=== PATIENT | female | born 1980 | race Caucasian/White ===

== ENCOUNTER 2017-02-04 06:58 | Inpatient (IN) | payer BC ==
--- NOTE | 2017-02-04 07:15 | EDPHY ---
H & P Time Seen by Provider: 02/04/17 06:58 HPI/ROS: CHIEF COMPLAINT: Seizure HISTORY OF PRESENT ILLNESS: Per EMS patient at 30 second seizure. Spouse called and pre-hospital glucose 141. She apparently has a history of alcohol use. Per the spouse there is no previous history of seizure disorder. On arrival she has a little bit confused and thinks she is in the city of [place], [facility]ated [facility]. She complains only of being sweaty but no other complaints. REVIEW OF SYSTEMS: Eye: no change in vision or double vision ENT: no sore throat Cardiac: no chest pain or syncope Pulmonary: no cough or SOB Abdomen: no vomiting, diarrhea, abdominal pain Musculoskeletal: no back pain Skin: The patient says she feels sweaty Neuro: no headache Constitutional: no fever : no urinary symptoms A comprehensive 10 point review of systems is otherwise negative aside from elements mentioned in the history of present illness. PAST MEDICAL HISTORY: Hypertension on Faizan inhibitor Social history: Discussed with spouse on phone at 710am per her request, daily alcohol. General Appearance: Alert and conversant, cooperative. Eyes: No scleral icterus. ENT, Mouth: Normal mucous membranes. Left-sided tongue abrasion. Respiratory: Normal respiratory effort, breath sounds equal, lungs are clear to auscultation. Cardiovascular: Regular rate and rhythm. Gastrointestinal: Abdomen is soft and non tender. Neurological: The patient is alert and thinks she is in [place]. Speech is a little bit halting. Mildly tremulous. Face symmetric, normal movement and sensation in all extremities. Skin: Bruising under the chin. Musculoskeletal: No peripheral edema and no joint swelling. Psychiatric: Not agitated. Emergency Department course/MDM: 739: Notified patient has sodium of 109. Consultation with Nephrology and hospitalist. Discussed with sister and at this time. Apparently she is visiting her sister, from [place]. 753: Discussed with Vito for Nephrology; recommends 50ml of 3% normal saline over 1 hour, check Na 1 hour after infusion. Replacement orally of potassium, 2 g magnesium IV OK as total volume is only 50 mLs. 815: Negative head CT per Dr. Dunn. 835: 3% normal saline infusing, seen by hospitalist in the emergency department. 859: Labs says they are still having trouble with the CBC on the analyzer, results pending. Smoking Status: Current every day smoker Constitutional: Initial Vital Signs Temperature (C) 36.7 C 02/04/17 07:00 Heart Rate 98 02/04/17 07:00 Respiratory Rate 18 02/04/17 07:00 Blood Pressure 136/88 H 02/04/17 07:00 O2 Sat (%) 94 02/04/17 07:00 O2 Delivery Mode Room Air Allergies/Adverse Reactions: amoxicillin Allergy (Verified 02/04/17 07:04) Sulfa (Sulfonamide Antibiotics) Allergy (Verified 02/04/17 07:04) Home Medications: Medication Instructions Recorded Lisinopril 02/04/17 Medical Decision Making - Diagnostics EKG Interpretation: 12-lead EKG interpreted by me; official reading is in trace master. My interpretation is sinus rhythm rate 88 with QT 432. Imaging Results: Imaging Impressions Head CT 02/04/17 07:15 Impression: No acute intracranial findings. If symptoms persist and clinical suspicion warrants, consider MRI. Findings discussed with CLARITA LAFLEUR 02/04/2017 at 8:08. Differential Diagnosis: Differential diagnosis considered for a seizure including but not limited to electrolyte abnormality, alcohol withdrawal, medication noncompliance, head injury, and breakthrough seizure. Consult/Admit Bed Type: [place] [address] Critical Care Time: Critical care time spent by me, Dr. Lafleur, exclusively with the care of this patient was 30 minutes, exclusive of PA or ASSISTANT HALL DIRECTOR time and exclusive of separate procedures. The organ system at risk was metabolic and I ordered oral potassium , IV magnesium, IV hypertonic saline, discussion with hospitalist and Nephrology pci security consultant, history and review of multiple diagnostic studies; to stabilize the patient and prevent worsening of the patient's condition. - Data Points Laboratory Results: Laboratory Results 02/04/17 07:00 02/04/17 02/04/17 02/04/17 07:11 07:00 07:00 WBC RBC Hgb Hct MCV MCH MCHC RDW Plt Count MPV Neut % (Auto) Lymph % (Auto) [place] % (Auto) Eos % (Auto) Baso % (Auto) Nucleat RBC Rel Count Absolute Neuts (auto) Absolute Lymphs (auto) Absolute Monos (auto) Absolute Eos (auto) Absolute Basos (auto) Absolute Nucleated RBC Immature Gran % Immature Gran # PT 11.9 SEC L SEC (12.0-15.0) INR 0.89 (0.83-1.16) Sodium 109 mEq/L L* mEq/L (134-144) Potassium 2.8 mEq/L L mEq/L (3.5-5.2) Chloride 58 mEq/L L mEq/L (97-110) Carbon Dioxide 30 mEq/l mEq/l (22-31) Anion Gap 21 mEq/L H mEq/L (8-16) BUN 5 mg/dL L mg/dL (7-23) Creatinine 0.7 mg/dL mg/dL (0.6-1.0) Estimated GFR > 60 Glucose 110 mg/dL H mg/dL (70-100) Calcium 9.5 mg/dL mg/dL (8.5-10.4) Beta HCG, Qual NEGATIVE 02/04/17 07:00 WBC Pending RBC Pending Hgb Pending Hct Pending MCV Pending MCH Pending MCHC Pending RDW Pending Plt Count Pending MPV Pending Neut % (Auto) Pending Lymph % (Auto) Pending [place] % (Auto) Pending Eos % (Auto) Pending Baso % (Auto) Pending Nucleat RBC Rel Count Pending Absolute Neuts (auto) Pending Absolute Lymphs (auto) Pending Absolute Monos (auto) Pending Absolute Eos (auto) Pending Absolute Basos (auto) Pending Absolute Nucleated RBC Pending Immature Gran % Pending Immature Gran # Pending PT INR Sodium Potassium Chloride Carbon Dioxide Anion Gap BUN Creatinine Estimated GFR Glucose Calcium Beta HCG, Qual Medications Given: Discontinued Medications Magnesium Sulfate (Magnesium Sulf 2 Gm (Premix)) 50 mls @ 50 mls/hr IV EDNOW ONE Stop: 02/04/17 08:45 Last Admin: 02/04/17 08:04 Dose: 50 mls Sodium Chloride (Sodium Chloride 3%) 50 mls @ 0 mls/hr IV EDNOW ONE; As Directed PRN Reason: Protocol Stop: 02/04/17 07:58 Last Admin: 02/04/17 08:26 Dose: 50 mls Metoclopramide HCl (Reglan Injection) 10 mg IVP EDNOW ONE Stop: 02/04/17 07:37 Last Admin: 02/04/17 08:01 Dose: 10 mg Potassium Chloride (Klor-Con) 40 meq PO EDNOW ONE Stop: 02/04/17 07:49 Last Admin: 02/04/17 08:09 Dose: 40 meq Departure - Departure Disposition: [facility] Acute Clinical Impression: Seizure, Hyponatremia Condition: Serious
--- NOTE | 2017-02-04 07:30 | CPEKG ---
Heart Rate: 88 RR Interval: 682 P-R Interval: 140 QRSD Interval: 92 QT Interval: 432 QTC Interval: 523 P [place]: 52 QRS [place]: 57 T Wave [place]: 47 EKG Severity - ABNORMAL ECG - EKG Impression: SINUS RHYTHM EKG Impression: PROLONGED QT INTERVAL Electronically Signed By: Missael Hall 04-Feb-2017 07:49:20
[2017-02-04 07:34] LABS: ANION GAP 21 mEq/L (8-16); CALCIUM 9.5 mg/dL (8.5-10.4); CARBON DIOXIDE 30 mEq/l (22-31); CHLORIDE 58 mEq/L (97-110); CREATININE 0.7 mg/dL (0.6-1.0); GLOMERULAR FILTRATION RATE > 60; GLUCOSE 110 mg/dL (70-100); POTASSIUM 2.8 mEq/L (3.5-5.2)
[2017-02-04] MEDS ORDERED: METOCLOPRAMIDE 10 MG/2 ML VIAL IVP ONE (07:36)
[2017-02-04 07:37] LABS: SODIUM 109 mEq/L (134-144)
[2017-02-04] MEDS ORDERED: MAGNESIUM SULF 2 GM/WATER 50 ML IV ONE (07:46)
[2017-02-04] MEDS ORDERED: POTASSIUM CL 20 MEQ TAB PO ONE ×3 (07:48→19:45)
[2017-02-04] MEDS ORDERED: SODIUM Cl 3% 50 ML IV ONE (07:57)
[2017-02-04] MEDS ORDERED: ONDANSETRON 4 MG/2 ML VIAL IVP PRN (08:37)
[2017-02-04] MEDS ORDERED: ONDANSETRON DISINTEGRATING 4 MG TAB PO PRN (08:37)
[2017-02-04 08:54] LABS: INR 0.89 (0.83-1.16); PROTIME(PATIENT) 11.9 SEC (12.0-15.0)
--- NOTE | 2017-02-04 09:34 | GHP ---
[f rep st] HISTORY AND PHYSICAL DATE OF ADMISSION: 02/04/2017 CHIEF COMPLAINT: Seizure. HISTORY OF PRESENT ILLNESS: This is a 37-year-old female who presented with a seizure. She is visit ing from [place], [place]. Her was in the other room, heard her, ran in there and saw valeria t her left arm was extended and right arm was contracted. There was some rhythmic shaking. She bit her lip, but not her tongue. Did not lose control of her bowel or her bladder. The event lasted abo ut 1 minute. Afterward, she was unable to speak for about 5 minutes and had then been confused. Whe n I am seeing her, she currently does know where she is and is speaking normally. She does not have a history of seizure disorders and has never had a seizure before. In the emergency room, she was found have sodium 109. In speaking with her further, she tells me valeria t she has been drinking alcohol quite heavily. Per her sister and her , she does not eat very much otherwise. She has been trying to increase her water intake a little bit, but does not really quantify how much. It is also difficult to get her to quantify how much she drinks, though she does drink at work daily, starts drinking around noon, has been hiding flasks of liquor from her a s well. She has had some alcohol withdrawal, never hospitalized for that, never had a seizure due to that. About 6 months ago, she fell down the stairs while intoxicated in [place]. She was admitted to the hospital there for major electrolyte imbalances. She received significant potassium and magnesium pe r her family. PAST MEDICAL/SURGICAL HISTORY: 1. Hypertension, on lisinopril. 2. Appendectomy as a child. MEDICATIONS: Please see medication reconciliation. ALLERGIES: Amoxicillin and sulfa. FAMILY HISTORY: Her mother has hypertension. Father has prostate cancer and chronic kidney disease. SOCIAL HISTORY: She drinks alcohol as above. She also smokes tobacco. REVIEW OF SYSTEMS: A 10-point review of systems is conducted and is negative except per HPI. PHYSICAL EXAM: VITAL SIGNS: Blood pressure 136/88, heart rate 98, respiration rate 18, saturating 9 4% on room air. Temperature is 36.7. GENERAL: The patient is a pleasant female who is currently re sting comfortably in bed, in no acute distress. HEENT: Normocephalic, atraumatic. She has a mild, what appears to be bite on her lower lip. CARDIOVASCULAR: Regular rate and rhythm. No murmurs, rub s or gallops. PULMONARY: Lungs clear to auscultation bilaterally. ABDOMEN: Soft, nontender, nondi stended. SKIN: No rash. : No Kramer. NEUROLOGIC: Alert and oriented x3. She is moving all ext remities. She has a nonfocal neurologic exam. PSYCHIATRIC: Normal mood and affect. LABS: CBC is pending. INR is pending. Sodium is 109, chloride 58, potassium is 2.8, glucose 110. DATA: 1. Head CT shows nothing acute. 2. ECG, which I personally viewed and interpreted, shows sinus rhythm. Her QTc is 523. IMPRESSION AND PLAN: A 37-year-old female with a seizure and critical hyponatremia. 1. Seizure: Suspect that this is due to her hyponatremia. Also consider alcohol withdrawal. Will monitor her in the ICU, treat hyponatremia and follow for alcohol withdrawal, which she currently cota s not appear to be experiencing. 2. Critical hyponatremia: Seems most consistent with beer potomania. We will also send urine elect rolytes, TSH, cortisol. Renal has been consulted, recommends 50 mL of 3% hypertonic saline and then recheck sodium 1 hour after infusion. We will follow q.2 sodiums for now. 3. Hypokalemia: She has received 40 mEq, we will recheck this soon. Also, we will check a magnesiu m. 4. Hypertension: We will hold her lisinopril for now. BILLING: I spent 45 minutes of bedside and floor critical care time managing critical hyponatremia c ausing a seizure. /[id number]/MODL
[2017-02-04 09:37] LABS: COLOR YELLOW; LEUKOCYTE ESTERASE,URINE NEGATIVE (NEGATIVE); NITRITE,URINE NEGATIVE (NEGATIVE)
[2017-02-04 10:00] LABS: % IMMATURE GRANULYOCYTES 0.6 % (0.0-1.1); ABSOLUTE IMMATURE GRANULOCYTES 0.04 10^3/uL (0.00-0.10); ABSOLUTE NRBC COUNT 0.02 10^3/uL (0-0.01); ADD DIFF? NO; ADD MORPH? YES; ADD SCAN? NO; ATYPICAL LYMPHOCYTE FLAG 0 (0-99); FRAGMENT RBC FLAG 0 (0-99); HEMATOCRIT 35.1 % (38.0-47.0); LEFT SHIFT FLG 0 (0-99); MEAN CELL VOLUME 85.2 fL (81.5-99.8); MEAN PLATELET VOLUME 11.1 fL (8.7-11.7); NRBC-AUTO% 0.3 % (0.0-0.2); PLATELET CLUMPS FLAG 10 (0-99); PLATELET COUNT 73 10^3/uL (150-400); RED BLOOD CELL COUNT 4.12 10^6/uL (4.18-5.33); RED CELL DISTRIBUTION WIDTH 12.7 % (11.5-15.2)
[2017-02-04 10:05] LABS: PHENCYCLIDINE URINE BCH < 6 ng/ml (NEGATIVE); PHENCYCLIDINE URINE BCH NEGATIVE (NEGATIVE)
[2017-02-04 10:05] LABS: LIPEMIA HEMOLYSIS FLAG 100 (0-99); MEAN CELL HEMOGLOBIN CONCENTR. 37.6 g/dL (32.4-36.7)
[2017-02-04 10:06] LABS: ALANINE AMINOTRANSFERASE 107 IU/L (9-52); ALBUMIN 4.6 g/dL (3.5-5.0); ALKALINE PHOSPHATASE 132 IU/L (38-126); ANION GAP 14 mEq/L (8-16); ASPARTATE AMINOTRANSFERASE 176 IU/L (14-46); BILIRUBIN,TOTAL 2.5 mg/dL (0.1-1.4); CALCIUM 8.9 mg/dL (8.5-10.4); CARBON DIOXIDE 31 mEq/l (22-31); CHLORIDE 62 mEq/L (97-110); CREATININE 0.7 mg/dL (0.6-1.0); ETHANOL SERUM < 10 mg/dL (0-10); GLOMERULAR FILTRATION RATE > 60; GLUCOSE 111 mg/dL (70-100); MAGNESIUM 2.6 mg/dL (1.6-2.3); POTASSIUM 2.6 mEq/L (3.5-5.2)
[2017-02-04 10:06] LABS: HEMOGLOBIN 13.2 g/dL (12.6-16.3)
[2017-02-04 10:15] LABS: TETRAHYDROCANNABINOL URINE 214 ng/mL (NEGATIVE)
[2017-02-04 10:19] LABS: SODIUM 107 mEq/L (134-144)
[2017-02-04 10:27] LABS: BILIRUBIN-CONJUGATED 0.7 mg/dL (0.0-0.5); BILIRUBIN-UNCONJUGATED 1.8 mg/dL (0.0-1.1)
[2017-02-04 10:27] LABS: TETRAHYDROCANNABINOL URINE 214 ng/mL (NEGATIVE)
[2017-02-04 10:31] LABS: HYPOCHROMIA 1+; MICROCYTES 1+; PLATELET ESTIMATE DECREASED (ADEQ)
[2017-02-04] MEDS ORDERED: ALTEPLASE 2 MG VIAL IVP PRN (10:46)
[2017-02-04] MEDS ORDERED: ALBUTEROL 60 PUFFS/8 GM MDI IH PRN (10:57)
[2017-02-04] MEDS ORDERED: PROTOCOL K PHOSPHATE 1 DOSE IV PRN (11:27)
[2017-02-04] MEDS ORDERED: PROTOCOL POTASSIUM 1 DOSE MISC PRN (11:27)
[2017-02-04] MEDS ORDERED: PROTOCOL MAGNESIUM 1 DOSE IV PRN (11:27)
[2017-02-04] MEDS ORDERED: SODIUM Cl 3% 100 ML IV ONE (11:37)
[2017-02-04 12:11] LABS: CORTISOL-AM 26.9 ug/dL (4.5-22.7)
[2017-02-04 13:04] LABS: POTASSIUM 2.6 mEq/L (3.5-5.2)
[2017-02-04 13:51] LABS: SODIUM 109 mEq/L (134-144)
[2017-02-04] MEDS: POTASSIUM Cl (KCl) 50 ML IV SCH ×2 (14:28→14:42)
--- NOTE | 2017-02-04 15:48 | PDCONSULT ---
Embroidery Finisher Note: Assessment/Plan: Hyponatremia: likely has been coming on for several days given her timeline of symptoms. Na 109 on presentation, goal is 115 by tomorrow am. Her urine osm and urine sodium is low, concerning for too much alcohol and not enough solute intake, does not look like SIADH. - Will continue 1000ml fluid restriction. - Sodium being checked q2h. - Will give another 100ml 3% sodium chloride. - Will continue to monitor closely. - Strict I/Os. - AM cortisol and TSH ok. Hypokalemia: Will continue to replace as needed, being checked q2h as well. Thank you for the interesting consult. Nephrology will continue to follow, please call if you have any additional questions or concerns. H & P Stated Complaint: Sz Time Seen by Provider: 02/04/17 06:58 HPI/ROS: HPI: Ms. Britton is a 37 yo F with h/o alcoholism who presented this am with seizures. Pt lives in [place], [place], is visiting her sister here. She reports that about 5 weeks ago she had a head trauma that was alcohol related, went to ER and was told her K and Mag were low and both were replaced, had PCP visit after that and supposedly fine. She has never been told she had a problem with sodium. She and her family note that she has a problem with alcohol, had at least 8 alcoholic beverages witnessed yesterday but no one is clear. This morning, she had a seizure for about 45 seconds witnessed by , was brought to ER. She has never had a seizure before. Her sodium on arrival was 109. She denies using any diuretics or NSAIDs, only takes an occasional MV OTC. Family notes she does not eat very much. Pt notes having some N/V in the past 2-3 days, and also notes some mild confusion in that timeframe. She got 50ml of 3% sodium chloride in ER but then started drinking water and apple juice, sodium came down on recheck to 107, now up to 110 with another 100ml of 3% sodium chloride. ROS: Positive per HPI, rest of 10-point ROS negative - Personal History LMP (Females 10-55): Unknown Current Tetanus/Diphtheria Vaccine: Unsure Current Tetanus Diphtheria and Acellular Pertussis (TDAP): Unsure - Medical/Surgical History Hx Asthma: No Hx Chronic Respiratory Disease: No Hx Diabetes: No Hx Cardiac Disease: No Hx Renal Disease: No Hx Cirrhosis: No Hx Alcoholism: Yes Hx HIV/AIDS: No Hx Splenectomy or Spleen Trauma: No Other PMH: PMH: asthma - Family History Significant Family History: Renal disease - Social History Smoking Status: Current every day smoker - Physical Exam Exam: General: alert and oriented, no acute distress Eyes; EOMI, PERRL OP: Clear, MMM Neck: supple, no thyromegaly CV: RRR, +2/4 radial and dorsalis pedis pulses, no peripheral edema Resp: CTA bilat, nonlabored respirations Abd: SOft, NT/ND Neuro: CN II-XII grossly intact, no asterixis Psych: cooperative, appropriate mood and affect Skin: C/D/I, no rash Constitutional: Initial Vital Signs Temperature (C) 36.7 C 02/04/17 07:00 Heart Rate 98 02/04/17 07:00 Respiratory Rate 18 02/04/17 07:00 Blood Pressure 136/88 H 02/04/17 07:00 O2 Sat (%) 94 02/04/17 07:00 O2 Delivery Mode Room Air Allergies/Adverse Reactions: amoxicillin Allergy (Verified 02/04/17 07:04) Sulfa (Sulfonamide Antibiotics) Allergy (Verified 02/04/17 07:04) Home Medications: Medication Instructions Recorded Albuterol [Proventil Inhaler HFA 1 - 2 puffs IH DAILY PRN 02/04/17 (*)] Lisinopril 30 mg PO DAILY 02/04/17 Multivitamins [Multivitamin (*)] 1 each PO DAILY 02/04/17 Lab and Imaging 02/04/17 07:00 02/04/17 14:21 WBC 6.51 10^3/uL (3.80-9.50) 02/04/17 07:00 RBC 4.12 10^6/uL (4.18-5.33) L 02/04/17 07:00 Hgb 13.2 g/dL (12.6-16.3) 02/04/17 07:00 POC Hgb 12.2 gm/dL (12.6-16.3) L 02/04/17 14:19 Hct 35.1 % (38.0-47.0) L 02/04/17 07:00 POC Hct 36 % (38-47) L 02/04/17 14:19 MCV 85.2 fL (81.5-99.8) 02/04/17 07:00 MCH 32.0 pg (27.9-34.1) 02/04/17 07:00 MCHC 37.6 g/dL (32.4-36.7) H 02/04/17 07:00 RDW 12.7 % (11.5-15.2) 02/04/17 07:00 Plt Count 73 10^3/uL (150-400) L 02/04/17 07:00 MPV 11.1 fL (8.7-11.7) 02/04/17 07:00 Neut % (Auto) 69.5 % (39.3-74.2) 02/04/17 07:00 Lymph % (Auto) 24.1 % (15.0-45.0) 02/04/17 07:00 Nicholas % (Auto) 5.1 % (4.5-13.0) 02/04/17 07:00 Eos % (Auto) 0.5 % (0.6-7.6) L 02/04/17 07:00 Baso % (Auto) 0.2 % (0.3-1.7) L 02/04/17 07:00 Nucleat RBC Rel Count 0.3 % (0.0-0.2) H 02/04/17 07:00 Absolute Neuts (auto) 4.53 10^3/uL (1.70-6.50) 02/04/17 07:00 Absolute Lymphs (auto) 1.57 10^3/uL (1.00-3.00) 02/04/17 07:00 Absolute Monos (auto) 0.33 10^3/uL (0.30-0.80) 02/04/17 07:00 Absolute Eos (auto) 0.03 10^3/uL (0.03-0.40) 02/04/17 07:00 Absolute Basos (auto) 0.01 10^3/uL (0.02-0.10) L 02/04/17 07:00 Absolute Nucleated RBC 0.02 10^3/uL (0-0.01) H 02/04/17 07:00 Immature Gran % 0.6 % (0.0-1.1) 02/04/17 07:00 Immature Gran # 0.04 10^3/uL (0.00-0.10) 02/04/17 07:00 Platelet Estimate DECREASED (ADEQ) L 02/04/17 07:00 Hypochromasia 1+ H 02/04/17 07:00 Microcytic Cells 1+ H 02/04/17 07:00 PT 11.9 SEC (12.0-15.0) L 02/04/17 07:11 INR 0.89 (0.83-1.16) 02/04/17 07:11 POC Sodium 116 mEq/L (134-144) L* 02/04/17 14:19 Sodium 110 mEq/L (134-144) L* 02/04/17 14:21 POC Potassium 2.3 mEq/L (3.3-5.0) L* 02/04/17 14:19 Potassium 2.6 mEq/L (3.5-5.2) L* 02/04/17 12:15 POC Chloride 67 mEq/L (97-110) L 02/04/17 14:19 Chloride 62 mEq/L (97-110) L 02/04/17 09:41 Carbon Dioxide 31 mEq/l (22-31) 02/04/17 09:41 Anion Gap 14 mEq/L (8-16) 02/04/17 09:41 POC BUN 5 mg/dL (7-23) L 02/04/17 14:19 BUN 7 mg/dL (7-23) 02/04/17 09:41 Creatinine 0.7 mg/dL (0.6-1.0) 02/04/17 09:41 POC Creatinine 0.8 mg/dL (0.6-1.0) 02/04/17 14:19 Estimated GFR > 60 02/04/17 09:41 Glucose 111 mg/dL (70-100) H 02/04/17 09:41 POC Glucose 102 mg/dL (70-100) H 02/04/17 14:19 Serum Osmolality 228 mosmo/kg (280-297) L 02/04/17 09:41 Calcium 8.9 mg/dL (8.5-10.4) 02/04/17 09:41 Phosphorus 2.1 mg/dL (2.5-4.5) L 02/04/17 09:41 Magnesium 2.6 mg/dL (1.6-2.3) H 02/04/17 09:41 Total Bilirubin 2.5 mg/dL (0.1-1.4) H 02/04/17 09:41 Conjugated Bilirubin 0.7 mg/dL (0.0-0.5) H 02/04/17 09:41 Unconjugated Bilirubin 1.8 mg/dL (0.0-1.1) H 02/04/17 09:41 AST 176 IU/L (14-46) H 02/04/17 09:41 ALT 107 IU/L (9-52) H 02/04/17 09:41 Alkaline Phosphatase 132 IU/L (38-126) H 02/04/17 09:41 Total Protein 7.0 g/dL (6.3-8.2) 02/04/17 09:41 Albumin 4.6 g/dL (3.5-5.0) 02/04/17 09:41 TSH 4.540 uIU/mL (0.465-4.680) 02/04/17 09:41 Beta HCG, Qual NEGATIVE 02/04/17 07:00 Cortisol AM Sample 26.9 ug/dL (4.5-22.7) H 02/04/17 09:41 Urine Color YELLOW 02/04/17 09:21 Urine Appearance CLEAR 02/04/17 09:21 Urine pH 8.0 (5.0-7.5) H 02/04/17 09:21 Ur Specific [place] 1.009 (1.002-1.030) 02/04/17 09:21 Urine Protein NEGATIVE (NEGATIVE) 02/04/17 09:21 Urine Ketones TRACE (NEGATIVE) H 02/04/17 09:21 Urine Blood NEGATIVE (NEGATIVE) 02/04/17 09:21 Urine Nitrate NEGATIVE (NEGATIVE) 02/04/17 09:21 Urine Bilirubin NEGATIVE (NEGATIVE) 02/04/17 09:21 Urine Urobilinogen NEGATIVE EU (0.2-1.0) 02/04/17 09:21 Ur Leukocyte Esterase NEGATIVE (NEGATIVE) 02/04/17 09:21 Urine Osmolality 268 mosmo/kg (300-900) L 02/04/17 09:21 Ur Random Sodium 22 mEq/L (30-90) L 02/04/17 09:21 Urine Glucose NEGATIVE (NEGATIVE) 02/04/17 09:21 Urine Opiates Screen NEGATIVE ng/mL (NEGATIVE) 02/04/17 09:21 Urine Barbiturates NEGATIVE ng/mL (NEGATIVE) 02/04/17 09:21 Ur Phencyclidine Scrn NEGATIVE ng/mL (NEGATIVE) 02/04/17 09:21 Ur Amphetamines Screen NEGATIVE ng/mL (NEGATIVE) 02/04/17 09:21 U Benzodiazepines Scrn NEGATIVE ng/mL (NEGATIVE) 02/04/17 09:21 Urine Cocaine Screen NEGATIVE ng/mL (NEGATIVE) 02/04/17 09:21 U Marijuana (THC) Screen 214 ng/mL (NEGATIVE) 02/04/17 09:21 Ethyl Alcohol < 10 mg/dL (0-10) 02/04/17 09:41
[2017-02-04] MEDS ORDERED: SODIUM Cl 3% 50 ML IV SCH ×2 (16:00→16:30)
--- NOTE | 2017-02-04 16:25 | GCON ---
[f rep st] CONSULTATION PULMONARY/CRITICAL CARE CONSULTATION DATE OF CONSULTATION: 02/04/2017 REFERRING PHYSICIAN: Prabhakar Martino MD REASON FOR REFERRAL: Evaluation and management of hyponatremia and hypokalemia, as well as headache. HISTORY: The patient is a 37-year-old woman, who is visiting from [place]. She had a witnessed sei zure early this morning, with rhythmic shaking. The start of seizure was not witnessed, and there wa s no apparent fall/injury. She had bit her lip, but not her tongue. She did not have incontinence. The entire event lasted about a minute. She had postictal confusion for about 5 minutes. She has n ot had any further seizures. She was brought to the emergency department and was found to be hyponat remic. She was started on 3% normal saline. She has been written for Ativan but does not appear to have received any. MEDICATIONS: Include lisinopril and albuterol. ALLERGIES: Amoxicillin and sulfa. SOCIAL HISTORY: The patient is from [place], [place]. She has a history of heavy alcohol use, dr inking throughout the day every day. She has a history of a fall due to intoxication several months ago and has had major electrolyte imbalances during that hospitalization. She also smokes tobacco. FAMILY HISTORY: Positive for hypertension. REVIEW OF SYSTEMS: A 10-point review of systems adds nothing to the history of present illness. PHYSICAL EXAMINATION: GENERAL: The patient is awake, alert, in no acute distress. VITAL SIGNS: He r blood pressure is 112/74 with a heart rate of 88. She is afebrile. Oxygen saturations are 100% on room air at rest. HEENT: Normocephalic and atraumatic. No icterus. NECK: No JVD. Trachea is mi dline. CHEST: Clear to auscultation. CARDIAC: Regular rate and rhythm without murmur. ABDOMEN: Soft, nontender. Bowel sounds are present. EXTREMITIES: No clubbing, cyanosis, or edema. LABORATORY DATA: Hemoglobin is 12.2, down from 13.2. An MCV is 85.2. Platelet count is 73. Sodium is 110, up from 109 on admission. Her potassium is 2.3, down from 2.8. A bilirubin is 2.5. An INR is 0.9. Urine tox screen is negative, and an alcohol level is less than 10. IMAGING DATA: A CT scan of the head shows no acute intracranial abnormalities. Images reviewed. ASSESSMENT: 1. Severe hyponatremia. This is most likely due to alcohol and water intake in the absence of much other food. Nephrology has been consulted, and she has been started on 3% normal saline, which is a slight improvement in her sodium levels. 2. Hypokalemia. This is severe and also likely related to poor p.o. intake with the exception of al cohol and water. 3. Seizure. This likely to the related hyponatremia. Alcohol withdrawal could be playing a role to o, but she really does not have much in the way of symptoms of alcohol withdrawal. 4. Headache. This is likely due to fluid shifts, as well as also alcohol withdrawal. RECOMMENDATIONS: 3% normal saline and will follow sodium closely to maintain a slow but steady incre ase in her sodium level. The patient will be given potassium replacement. She will be observed for seizures, and Ativan will be used p.r.n. Will give her Tylenol p.r.n. for her headache. She will be observed for alcohol withdrawal. /[id number]/MODL
[2017-02-04] MEDS ORDERED: VASOPRESSIN/DEXTROSE 250 ML IV SCH (16:30)
[2017-02-04] MEDS: ACETAMINOPHEN 325 MG TAB PO PRN ×2 (16:53→22:33)
[2017-02-04] MEDS: ALBUTEROL 200 PUFFS/18 GM MDI IH PRN (19:40)
[2017-02-04] MEDS ORDERED: levETIRAcetam 500 MG TAB PO SCH (21:00)
[2017-02-04 21:19] LABS: ANION GAP 11 mEq/L (8-16); CALCIUM 8.9 mg/dL (8.5-10.4); CARBON DIOXIDE 28 mEq/l (22-31); CHLORIDE 76 mEq/L (97-110); CREATININE 0.8 mg/dL (0.6-1.0); GLOMERULAR FILTRATION RATE > 60; GLUCOSE 103 mg/dL (70-100); POTASSIUM 3.6 mEq/L (3.5-5.2)
[2017-02-04] MEDS ORDERED: DESMOPRESSIN ACETATE 4 MCG/ML INJ IV ONE (21:30)
[2017-02-04 21:52] LABS: SODIUM 115 mEq/L (134-144)
[2017-02-04 23:12] LABS: ANION GAP 12 mEq/L (8-16); CALCIUM 8.8 mg/dL (8.5-10.4); CARBON DIOXIDE 27 mEq/l (22-31); CHLORIDE 76 mEq/L (97-110); CREATININE 0.8 mg/dL (0.6-1.0); GLOMERULAR FILTRATION RATE > 60; GLUCOSE 80 mg/dL (70-100); POTASSIUM 3.8 mEq/L (3.5-5.2)
[2017-02-04 23:35] LABS: SODIUM 115 mEq/L (134-144)
[2017-02-05] MEDS ORDERED: POTASSIUM Cl (KCl) 50 ML IV ONE ×2 (00:27→21:30)
[2017-02-05] MEDS: LORazepam 1 MG TAB PO PRN ×2 (00:58→09:24)
[2017-02-05 01:13] LABS: ANION GAP 11 mEq/L (8-16); CALCIUM 8.8 mg/dL (8.5-10.4); CARBON DIOXIDE 27 mEq/l (22-31); CHLORIDE 79 mEq/L (97-110); CREATININE 0.8 mg/dL (0.6-1.0); GLOMERULAR FILTRATION RATE > 60; GLUCOSE 80 mg/dL (70-100); POTASSIUM 3.7 mEq/L (3.5-5.2)
[2017-02-05 01:22] LABS: SODIUM 117 mEq/L (134-144)
[2017-02-05 03:20] LABS: ANION GAP 11 mEq/L (8-16); CALCIUM 8.5 mg/dL (8.5-10.4); CARBON DIOXIDE 26 mEq/l (22-31); CHLORIDE 82 mEq/L (97-110); CREATININE 0.7 mg/dL (0.6-1.0); GLOMERULAR FILTRATION RATE > 60; GLUCOSE 74 mg/dL (70-100); POTASSIUM 4.1 mEq/L (3.5-5.2)
[2017-02-05 03:23] LABS: SODIUM 119 mEq/L (134-144)
[2017-02-05] MEDS ORDERED: D5W 300 ML IV ONE (04:00)
[2017-02-05 05:02] LABS: ANION GAP 12 mEq/L (8-16); CALCIUM 8.8 mg/dL (8.5-10.4); CARBON DIOXIDE 26 mEq/l (22-31); CHLORIDE 80 mEq/L (97-110); CREATININE 0.7 mg/dL (0.6-1.0); GLOMERULAR FILTRATION RATE > 60; GLUCOSE 85 mg/dL (70-100)
[2017-02-05 05:19] LABS: SODIUM 118 mEq/L (134-144)
[2017-02-05] MEDS ORDERED: K PHOS 20 MMOL in D5W 250 ML IV ONE (06:00)
[2017-02-05 06:46] LABS: % IMMATURE GRANULYOCYTES 0.3 % (0.0-1.1); ABSOLUTE IMMATURE GRANULOCYTES 0.01 10^3/uL (0.00-0.10); ADD DIFF? NO; ADD MORPH? NO; ADD SCAN? NO; ATYPICAL LYMPHOCYTE FLAG 20 (0-99); FRAGMENT RBC FLAG 0 (0-99); HEMATOCRIT 25.6 % (38.0-47.0); HEMOGLOBIN 9.4 g/dL (12.6-16.3); LEFT SHIFT FLG 0 (0-99); LIPEMIA HEMOLYSIS FLAG 90 (0-99); MEAN CELL HEMOGLOBIN 32.5 pg (27.9-34.1); MEAN CELL HEMOGLOBIN CONCENTR. 36.7 g/dL (32.4-36.7); MEAN CELL VOLUME 88.6 fL (81.5-99.8); MEAN PLATELET VOLUME 10.2 fL (8.7-11.7); PLATELET CLUMPS FLAG 0 (0-99); PLATELET COUNT 55 10^3/uL (150-400); RED BLOOD CELL COUNT 2.89 10^6/uL (4.18-5.33); RED CELL DISTRIBUTION WIDTH 12.7 % (11.5-15.2)
[2017-02-05 07:05] LABS: ANION GAP 10 mEq/L (8-16); CARBON DIOXIDE 23 mEq/l (22-31); CHLORIDE 74 mEq/L (97-110); CREATININE 0.6 mg/dL (0.6-1.0); GLOMERULAR FILTRATION RATE > 60; GLUCOSE 426 mg/dL (70-100); MAGNESIUM 1.9 mg/dL (1.6-2.3); POTASSIUM 3.3 mEq/L (3.5-5.2)
--- NOTE | 2017-02-05 07:18 | SOAPPROG ---
SOAP Progress Note Assessment/Plan: Assessment: 1. Severe hyponatremia with seizure Presenting Na 109. Target this am was 115. Received DDAVP last pm. Had slight overcorrection, now bringing back down with some D5W. Explained nature of hyponatremia (poor solute intake, hypotonic fluid intake). Also discussed goals of slow correction. Continue very close monitoring today. 2. Other electrolytes Replacing and monitoring phos. K improved. Mg has been ok. 3. Alcohol withdrawal. Continuing with vitamin supplementation, benzos per protocol. She is not tremulous at present. Will educate as she clinically improves. Plan: 02/05/17 07:12 Subjective: Doing pretty well this am. Some mild confusion, but oriented and appropriate during conversation. Objective: Vital Signs Temp Pulse Resp BP Pulse Ox 36.8 C 76 18 124/90 H 99 02/05/17 04:00 02/05/17 06:00 02/05/17 06:00 02/05/17 06:00 02/05/17 06:00 Laboratory Results 02/05/17 06:30 02/04/17 02/05/17 02/06/17 05:59 05:59 05:59 Intake Total 1082 Output Total 700 Balance 382 PT 11.9 SEC (12.0-15.0) L 02/04/17 07:11 INR 0.89 (0.83-1.16) 02/04/17 07:11 Physical Exam - Physical Exam General Appearance: no apparent distress Respiratory: lungs clear Cardiac/Chest: regular rate, rhythm Skin: normal color Extremities: normal capillary refill Neuro/Psych: alert, oriented x 3 ICD10 Worksheet Patient Problems: Problems Problem Status Onset Hyponatremia Acute Seizure Acute
[2017-02-05 07:20] LABS: SODIUM 107 mEq/L (134-144)
--- NOTE | 2017-02-05 07:24 | SOAPPROG ---
SOAP Progress Note Assessment/Plan: Assessment: Addendum; Pt's CBC quite abnormal. Will repeat, check iron stores, check stool HO. Objective: Vital Signs Temp Pulse Resp BP Pulse Ox 36.8 C 76 18 124/90 H 99 02/05/17 04:00 02/05/17 06:00 02/05/17 06:00 02/05/17 06:00 02/05/17 06:00 Laboratory Results 02/05/17 06:30 02/05/17 06:30 02/04/17 02/05/17 02/06/17 05:59 05:59 05:59 Intake Total 1082 Output Total 700 Balance 382 PT 11.9 SEC (12.0-15.0) L 02/04/17 07:11 INR 0.89 (0.83-1.16) 02/04/17 07:11 ICD10 Worksheet Patient Problems: Problems Problem Status Onset Hyponatremia Acute Seizure Acute
[2017-02-05] MEDS: MULTIVITAMINS 1 EACH TAB PO SCH (08:47)
[2017-02-05 08:56] LABS: ANION GAP 10 mEq/L (8-16); CALCIUM 8.7 mg/dL (8.5-10.4); CARBON DIOXIDE 24 mEq/l (22-31); CHLORIDE 81 mEq/L (97-110); CREATININE 0.6 mg/dL (0.6-1.0); GLOMERULAR FILTRATION RATE > 60; GLUCOSE 128 mg/dL (70-100); POTASSIUM 3.4 mEq/L (3.5-5.2)
[2017-02-05 09:02] LABS: SODIUM 115 mEq/L (134-144)
[2017-02-05 09:04] LABS: % SATURATION 28 % (20-55); TOTAL IRON BINDING CAPACITY 254 ug/dL (260-490)
[2017-02-05] MEDS ORDERED: LORazepam 1 MG TAB PO PRN (10:29)
[2017-02-05 10:41] LABS: ANION GAP 12 mEq/L (8-16); CALCIUM 8.7 mg/dL (8.5-10.4); CARBON DIOXIDE 23 mEq/l (22-31); CHLORIDE 81 mEq/L (97-110); CREATININE 0.6 mg/dL (0.6-1.0); GLOMERULAR FILTRATION RATE > 60; GLUCOSE 93 mg/dL (70-100); POTASSIUM 3.8 mEq/L (3.5-5.2)
[2017-02-05 10:44] LABS: SODIUM 116 mEq/L (134-144)
--- NOTE | 2017-02-05 11:05 | HOSPPROG ---
Hospitalist Progress Note Assessment/Plan: # critical hyponatremia - better today; Na 116; received DDAVP last night - renal involved # etOH abuse and w/d - appears to be starting to withdraw - cont aggressive CIWA and thiamine # hypokalemia - better with repletion # hypophos - replete # pancytopenia - likely d/t bone marrow suppression - no signs of blood loss; checking FOBT - follow daily for now Subjective: confused this morning; more agitated Objective: Vital Signs Temp Pulse Resp BP Pulse Ox 37.2 C 90 24 H 115/80 100 02/05/17 07:41 02/05/17 09:46 02/05/17 09:46 02/05/17 09:46 02/05/17 09:46 Laboratory Results 02/05/17 06:30 02/05/17 10:00 02/04/17 02/05/17 02/06/17 05:59 05:59 05:59 Intake Total 1082 Output Total 700 150 Balance 382 -150 PT 11.9 SEC (12.0-15.0) L 02/04/17 07:11 INR 0.89 (0.83-1.16) 02/04/17 07:11 high risk - Physical Exam Constitutional: other (picking at lines; thinks we are in [place]) Cardiovascular: regular rate and rhythym, no murmur, rub, or gallop Respiratory: no respiratory distress, no rales or rhonchi Gastrointestinal: normoactive bowel sounds, soft, non-tender abdomen ICD10 Worksheet Patient Problems: Problems Problem Status Onset Seizure Acute Hyponatremia Acute
[2017-02-05] MEDS: LORazepam 2 MG/ML INJ IVP PRN ×4 (12:38→14:08)
[2017-02-05 13:11] LABS: ANION GAP 11 mEq/L (8-16); CALCIUM 8.7 mg/dL (8.5-10.4); CARBON DIOXIDE 24 mEq/l (22-31); CHLORIDE 79 mEq/L (97-110); CREATININE 0.6 mg/dL (0.6-1.0); GLOMERULAR FILTRATION RATE > 60; GLUCOSE 106 mg/dL (70-100); POTASSIUM 3.9 mEq/L (3.5-5.2)
[2017-02-05 13:25] LABS: SODIUM 114 mEq/L (134-144)
--- NOTE | 2017-02-05 13:38 | PDINTPN ---
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 Due to alcoholism, with diet primarily of EtOH and water. Nephrology managing. Hypokalemia: Corrected EtOH withdrawal: Markedly increased today, with confusion, fidgeting, disorientation. Sz: Due to hyponatremia. No further seizures. Plan: Increase benzos. Continue fluid restriction, close monitoring of serum Na. Keep in ICU for now. 02/05/17 13:43 Subjective: Much more confused, fidgeting. Objective: Vital Signs Temp Pulse Resp BP Pulse Ox 37.2 C 73 22 H 115/80 96 02/05/17 07:41 02/05/17 12:00 02/05/17 12:00 02/05/17 12:00 02/05/17 12:00 Laboratory Results 02/05/17 06:30 02/05/17 12:30 02/04/17 02/05/17 02/06/17 05:59 05:59 05:59 Intake Total 1082 Output Total 700 250 Balance 382 -250 PT 11.9 SEC (12.0-15.0) L 02/04/17 07:11 INR 0.89 (0.83-1.16) 02/04/17 07:11 Physical Exam - Physical Exam General Appearance: alert, no apparent distress EENT: normal ENT inspection Neck: normal inspection Respiratory: lungs clear, No normal breath sounds Cardiac/Chest: regular rate, rhythm, No edema Abdomen: normal bowel sounds, non-tender, soft Skin: warm/dry Extremities: normal inspection Neuro/Psych: alert, cognition abnormalities, disoriented to place, disoriented to time ICD10 Worksheet Patient Problems: Problems Problem Status Onset Hyponatremia Acute Seizure Acute
[2017-02-05] MEDS ORDERED: POTASSIUM CL 20 MEQ TAB PO ONE (13:45)
[2017-02-05] MEDS ORDERED: LORazepam 2 MG/ML INJ IVP PRN (13:55)
[2017-02-05] MEDS: DEXMEDETOMIDINE HCL 400 MCG in NS 100 ML IV SCH (13:57)
[2017-02-05] MEDS ORDERED: POTASSIUM Cl (KCl) 20 MEQ/100 ML BAG IV ONE (13:59)
[2017-02-05 15:08] LABS: ANION GAP 11 mEq/L (8-16); CALCIUM 8.6 mg/dL (8.5-10.4); CARBON DIOXIDE 23 mEq/l (22-31); CHLORIDE 80 mEq/L (97-110); CREATININE 0.6 mg/dL (0.6-1.0); GLOMERULAR FILTRATION RATE > 60; GLUCOSE 104 mg/dL (70-100); POTASSIUM 3.9 mEq/L (3.5-5.2)
[2017-02-05 15:10] LABS: SODIUM 114 mEq/L (134-144)
[2017-02-05 16:12] LABS: ANION GAP 11 mEq/L (8-16); CALCIUM 8.7 mg/dL (8.5-10.4); CARBON DIOXIDE 23 mEq/l (22-31); CHLORIDE 80 mEq/L (97-110); CREATININE 0.6 mg/dL (0.6-1.0); GLOMERULAR FILTRATION RATE > 60; GLUCOSE 105 mg/dL (70-100)
[2017-02-05 16:19] LABS: SODIUM 114 mEq/L (134-144)
--- NOTE | 2017-02-05 16:24 | ASMTCMCOM ---
CM Note CM Note Notes: Pt. is a 37-year-old woman admitted after a seizure for hyponatremia. Pt. is reportedly visiting from [place], [place] with her , Lavelle. Pt. reports she has been drinking excessively. Being monitored during her withdrawal. Will need assessment for ETOH resources when appropriate prior to d/c. CM to follow for d/c POC. Date Signed: 02/05/2017 04:23 PM Electronically Signed By:Kelly Pena LCSW
[2017-02-05 19:14] LABS: ANION GAP 11 mEq/L (8-16); CALCIUM 8.8 mg/dL (8.5-10.4); CARBON DIOXIDE 22 mEq/l (22-31); CHLORIDE 83 mEq/L (97-110); CREATININE 0.5 mg/dL (0.6-1.0); GLOMERULAR FILTRATION RATE > 60; GLUCOSE 92 mg/dL (70-100); POTASSIUM 3.4 mEq/L (3.5-5.2)
[2017-02-05 19:18] LABS: SODIUM 116 mEq/L (134-144)
[2017-02-05] MEDS ORDERED: POTASSIUM Cl (KCl) 100 ML IV ONE (19:45)
[2017-02-05] MEDS: LORazepam 2 MG/ML INJ IVP SCH (20:40)
[2017-02-05 21:38] LABS: ANION GAP 11 mEq/L (8-16); CALCIUM 8.9 mg/dL (8.5-10.4); CARBON DIOXIDE 21 mEq/l (22-31); CHLORIDE 84 mEq/L (97-110); CREATININE 0.5 mg/dL (0.6-1.0); GLOMERULAR FILTRATION RATE > 60; GLUCOSE 88 mg/dL (70-100); POTASSIUM 4.4 mEq/L (3.5-5.2)
[2017-02-05 21:49] LABS: SODIUM 116 mEq/L (134-144)
[2017-02-05] MEDS ORDERED: chlordiazePOXIDE 25 MG CAP PO SCH (22:00)
[2017-02-05 23:04] LABS: ANION GAP 8 mEq/L (8-16); CALCIUM 9.3 mg/dL (8.5-10.4); CARBON DIOXIDE 21 mEq/l (22-31); CHLORIDE 87 mEq/L (97-110); CREATININE 0.6 mg/dL (0.6-1.0); GLOMERULAR FILTRATION RATE > 60; GLUCOSE 85 mg/dL (70-100); POTASSIUM 5.2 mEq/L (3.5-5.2)
[2017-02-05 23:09] LABS: SODIUM 116 mEq/L (134-144)
[2017-02-06] MEDS: LORazepam 2 MG/ML INJ IVP SCH ×3 (00:46→12:15)
[2017-02-06] MEDS: DEXMEDETOMIDINE HCL 400 MCG in NS 100 ML IV SCH (00:46)
[2017-02-06 01:05] LABS: ANION GAP 10 mEq/L (8-16); CALCIUM 9.4 mg/dL (8.5-10.4); CARBON DIOXIDE 20 mEq/l (22-31); CHLORIDE 88 mEq/L (97-110); CREATININE 0.6 mg/dL (0.6-1.0); GLOMERULAR FILTRATION RATE > 60; GLUCOSE 88 mg/dL (70-100); POTASSIUM 4.5 mEq/L (3.5-5.2)
[2017-02-06 01:07] LABS: SODIUM 118 mEq/L (134-144)
[2017-02-06 03:13] LABS: ANION GAP 11 mEq/L (8-16); CALCIUM 9.5 mg/dL (8.5-10.4); CARBON DIOXIDE 21 mEq/l (22-31); CHLORIDE 87 mEq/L (97-110); CREATININE 0.6 mg/dL (0.6-1.0); GLOMERULAR FILTRATION RATE > 60; GLUCOSE 84 mg/dL (70-100); POTASSIUM 4.3 mEq/L (3.5-5.2)
[2017-02-06 03:18] LABS: SODIUM 119 mEq/L (134-144)
[2017-02-06 05:25] LABS: ANION GAP 10 mEq/L (8-16); CALCIUM 9.3 mg/dL (8.5-10.4); CARBON DIOXIDE 21 mEq/l (22-31); CHLORIDE 88 mEq/L (97-110); CREATININE 0.6 mg/dL (0.6-1.0); GLOMERULAR FILTRATION RATE > 60; GLUCOSE 78 mg/dL (70-100); POTASSIUM 4.1 mEq/L (3.5-5.2)
[2017-02-06 05:37] LABS: SODIUM 119 mEq/L (134-144)
[2017-02-06 07:38] LABS: ANION GAP 12 mEq/L (8-16); CALCIUM 9.3 mg/dL (8.5-10.4); CARBON DIOXIDE 20 mEq/l (22-31); CHLORIDE 89 mEq/L (97-110); CREATININE 0.6 mg/dL (0.6-1.0); GLOMERULAR FILTRATION RATE > 60; GLUCOSE 82 mg/dL (70-100); MAGNESIUM 1.8 mg/dL (1.6-2.3); POTASSIUM 4.2 mEq/L (3.5-5.2); SODIUM 121 mEq/L (134-144)
[2017-02-06] MEDS ORDERED: DESMOPRESSIN ACETATE 2 MCG in NS 50 ML IV ONE (09:13)
[2017-02-06 09:18] LABS: ANION GAP 11 mEq/L (8-16); CALCIUM 9.4 mg/dL (8.5-10.4); CARBON DIOXIDE 20 mEq/l (22-31); CHLORIDE 90 mEq/L (97-110); CREATININE 0.6 mg/dL (0.6-1.0); GLOMERULAR FILTRATION RATE > 60; GLUCOSE 81 mg/dL (70-100); POTASSIUM 4.4 mEq/L (3.5-5.2); SODIUM 121 mEq/L (134-144)
--- NOTE | 2017-02-06 09:19 | SOAPPROG ---
SOAP Progress Note Assessment/Plan: Assessment: 1. Severe hyponatremia Related to hypotonic fluid intake with poor solute intake. High risk of ODS. Correcting very slowly with intensive monitoring. Na 121 this am. Will give DDAVP. She is allowed 1000ml fluid per day, but drinking is sometimes limited by sedation and concerns of aspiration. May give some additional hypotonic IVF based on next labs. 2. K, Phos Monitoring and supplementing 3. ETOH Withdrawal Receiving precedex, thiamine, folate. Close monitoring. Family at bedside. Subjective: Disoriented, but responds Objective: Vital Signs Temp Pulse Resp BP Pulse Ox 36.4 C 77 25 H 110/80 100 02/06/17 08:00 02/06/17 08:00 02/06/17 08:00 02/06/17 08:00 02/06/17 08:00 Laboratory Results 02/05/17 06:30 02/05/17 02/06/17 02/07/17 05:59 05:59 05:59 Intake Total 1082 788.4 Output Total 700 1650 Balance 382 -861.6 PT 11.9 SEC (12.0-15.0) L 02/04/17 07:11 INR 0.89 (0.83-1.16) 02/04/17 07:11 Physical Exam - Physical Exam General Appearance: no apparent distress Respiratory: lungs clear Cardiac/Chest: regular rate, rhythm Skin: normal color, warm/dry Extremities: normal inspection Neuro/Psych: disoriented to place, disoriented to time ICD10 Worksheet Patient Problems: Problems Problem Status Onset Hyponatremia Acute Seizure Acute
[2017-02-06] MEDS ORDERED: DESMOPRESSIN ACETATE 4 MCG/ML INJ IVP ONE (09:45)
--- NOTE | 2017-02-06 10:09 | HOSPPROG ---
Hospitalist Progress Note Assessment/Plan: # critical hyponatremia - better today; Na 221; appreciate renal's assistance # etOH abuse and w/d - w/d severe yesterday, but seems better today - off precedex; follow closely # hypokalemia - better with repletion # hypophos - replete # pancytopenia - likely d/t bone marrow suppression - no signs of blood loss; checking FOBT - follow daily for now Subjective: feels dizzy, nauseous today; more oriented; off precedex Objective: Vital Signs Temp Pulse Resp BP Pulse Ox 36.4 C 77 25 H 110/80 100 02/06/17 08:00 02/06/17 08:00 02/06/17 08:00 02/06/17 08:00 02/06/17 08:00 Laboratory Results 02/05/17 06:30 02/06/17 08:30 02/05/17 02/06/17 02/07/17 05:59 05:59 05:59 Intake Total 1082 788.4 Output Total 700 1650 Balance 382 -861.6 PT 11.9 SEC (12.0-15.0) L 02/04/17 07:11 INR 0.89 (0.83-1.16) 02/04/17 07:11 - Physical Exam Constitutional: unkempt Cardiovascular: regular rate and rhythym, no murmur, rub, or gallop Respiratory: no respiratory distress, no rales or rhonchi, clear to auscultation Gastrointestinal: normoactive bowel sounds, soft, non-tender abdomen, no palpable masses ICD10 Worksheet Patient Problems: Problems Problem Status Onset Seizure Acute Hyponatremia Acute
[2017-02-06] MEDS: MULTIVITAMINS 1 EACH TAB PO SCH (10:11)
[2017-02-06 11:14] LABS: % IMMATURE GRANULYOCYTES 0.7 % (0.0-1.1); ABSOLUTE IMMATURE GRANULOCYTES 0.03 10^3/uL (0.00-0.10); ADD DIFF? NO; ADD MORPH? NO; ADD SCAN? NO; ATYPICAL LYMPHOCYTE FLAG 0 (0-99); FRAGMENT RBC FLAG 0 (0-99); HEMATOCRIT 30.6 % (38.0-47.0); HEMOGLOBIN 10.9 g/dL (12.6-16.3); LEFT SHIFT FLG 0 (0-99); LIPEMIA HEMOLYSIS FLAG 90 (0-99); MEAN CELL HEMOGLOBIN 32.2 pg (27.9-34.1); MEAN CELL HEMOGLOBIN CONCENTR. 35.6 g/dL (32.4-36.7); MEAN CELL VOLUME 90.3 fL (81.5-99.8); MEAN PLATELET VOLUME 10.3 fL (8.7-11.7); PLATELET CLUMPS FLAG 0 (0-99); PLATELET COUNT 99 10^3/uL (150-400); RED BLOOD CELL COUNT 3.39 10^6/uL (4.18-5.33); RED CELL DISTRIBUTION WIDTH 12.6 % (11.5-15.2)
[2017-02-06] MEDS ORDERED: MAGNESIUM SULF 1 GM/DEXTROSE 100 ML IV ONE (11:22)
[2017-02-06 11:36] LABS: ALBUMIN 4.2 g/dL (3.5-5.0); ANION GAP 12 mEq/L (8-16); CALCIUM 9.4 mg/dL (8.5-10.4); CARBON DIOXIDE 20 mEq/l (22-31); CHLORIDE 88 mEq/L (97-110); CREATININE 0.6 mg/dL (0.6-1.0); GLOMERULAR FILTRATION RATE > 60; GLUCOSE 129 mg/dL (70-100); POTASSIUM 4.2 mEq/L (3.5-5.2); SODIUM 120 mEq/L (134-144)
[2017-02-06 12:48] LABS: ALBUMIN 4.1 g/dL (3.5-5.0); ANION GAP 10 mEq/L (8-16); CALCIUM 9.6 mg/dL (8.5-10.4); CARBON DIOXIDE 21 mEq/l (22-31); CHLORIDE 89 mEq/L (97-110); CREATININE 0.6 mg/dL (0.6-1.0); GLOMERULAR FILTRATION RATE > 60; GLUCOSE 117 mg/dL (70-100); POTASSIUM 4.6 mEq/L (3.5-5.2); SODIUM 120 mEq/L (134-144)
--- NOTE | 2017-02-06 12:59 | PDINTPN ---
State Appellate Clerk Progress Note Assessment/Plan: Assessment: Hyponatremia: Slowly/steadily improving at goal rate. Due to alcoholism, with diet primarily of EtOH and water. Nephrology managing. Hypokalemia: Corrected EtOH withdrawal: Improved today, with last fidgeting, but still perseverating and disoriented. Sz: Due to hyponatremia. No further seizures. Plan: Continue p.r.n. benzodiazepines. Continue fluid restriction, close monitoring of serum Na. Keep in ICU for now. 02/05/17 13:43 02/06/17 12:58 Subjective: Orientation improved, but not back to baseline. She thinks she slept fairly well last night, but can't recall specifically. Appetite is fair. Objective: Vital Signs Temp Pulse Resp BP Pulse Ox 36.6 C 71 19 103/74 95 02/06/17 12:00 02/06/17 12:00 02/06/17 12:00 02/06/17 12:00 02/06/17 12:00 Laboratory Results 02/06/17 10:40 02/06/17 12:30 02/05/17 02/06/17 02/07/17 05:59 05:59 05:59 Intake Total 1082 788.4 Output Total 700 1650 Balance 382 -861.6 PT 11.9 SEC (12.0-15.0) L 02/04/17 07:11 INR 0.89 (0.83-1.16) 02/04/17 07:11 Physical Exam - Physical Exam General Appearance: alert, no apparent distress EENT: normal ENT inspection Neck: normal inspection Respiratory: lungs clear, normal breath sounds Cardiac/Chest: regular rate, rhythm, No edema Abdomen: normal bowel sounds, non-tender Skin: normal color, warm/dry Extremities: normal inspection Neuro/Psych: alert, No normal mood/affect (Oriented x1), No oriented x 3 ICD10 Worksheet Patient Problems: Problems Problem Status Onset Hyponatremia Acute Seizure Acute
[2017-02-06] MEDS ORDERED: LORazepam 1 MG TAB ONE (13:38)
[2017-02-06] MEDS: LORazepam 1 MG TAB PO PRN ×2 (13:40→13:42)
[2017-02-06 15:38] LABS: ALBUMIN 4.1 g/dL (3.5-5.0); ANION GAP 12 mEq/L (8-16); CALCIUM 9.4 mg/dL (8.5-10.4); CARBON DIOXIDE 19 mEq/l (22-31); CHLORIDE 88 mEq/L (97-110); CREATININE 0.6 mg/dL (0.6-1.0); GLOMERULAR FILTRATION RATE > 60; GLUCOSE 82 mg/dL (70-100); POTASSIUM 4.4 mEq/L (3.5-5.2)
[2017-02-06 15:48] LABS: SODIUM 119 mEq/L (134-144)
--- NOTE | 2017-02-06 16:59 | ASMTCMCOM ---
CM Note CM Note Notes: Family interested in ETOH resources. They live in [place]. Spoke to family and patient and encouraged them to seek tx through their insurance and in [place] where she could seek continuous support. Patient's employer allows to ETOH at work. Asked if she was willing to quit? She was willing to cut back. The road to recovery will be a long process. Asked Dr Martino to inform her of the medical consequences. Date Signed: 02/06/2017 04:58 PM Electronically Signed By:Ciarra Figueroa LCSW
[2017-02-06 17:14] LABS: ALBUMIN 3.9 g/dL (3.5-5.0); ANION GAP 10 mEq/L (8-16); CALCIUM 9.1 mg/dL (8.5-10.4); CARBON DIOXIDE 21 mEq/l (22-31); CHLORIDE 88 mEq/L (97-110); CREATININE 0.6 mg/dL (0.6-1.0); GLOMERULAR FILTRATION RATE > 60; GLUCOSE 151 mg/dL (70-100); POTASSIUM 4.4 mEq/L (3.5-5.2)
[2017-02-06 17:17] LABS: SODIUM 119 mEq/L (134-144)
[2017-02-06] MEDS ORDERED: SODIUM PHOS 20 MM in D5W 250 ML IV ONE (18:00)
[2017-02-06 18:54] LABS: ALBUMIN 3.8 g/dL (3.5-5.0); ANION GAP 9 mEq/L (8-16); CALCIUM 9.4 mg/dL (8.5-10.4); CARBON DIOXIDE 20 mEq/l (22-31); CHLORIDE 89 mEq/L (97-110); CREATININE 0.6 mg/dL (0.6-1.0); GLOMERULAR FILTRATION RATE > 60; GLUCOSE 80 mg/dL (70-100); POTASSIUM 4.3 mEq/L (3.5-5.2)
[2017-02-06 18:59] LABS: SODIUM 118 mEq/L (134-144)
[2017-02-06] MEDS: SODIUM Cl 3% 30 ML IV SCH ×2 (19:42→22:45)
[2017-02-06 21:53] LABS: ANION GAP 9 mEq/L (8-16); CALCIUM 9.1 mg/dL (8.5-10.4); CARBON DIOXIDE 20 mEq/l (22-31); CHLORIDE 89 mEq/L (97-110); CREATININE 0.6 mg/dL (0.6-1.0); GLOMERULAR FILTRATION RATE > 60; GLUCOSE 85 mg/dL (70-100); POTASSIUM 3.7 mEq/L (3.5-5.2)
[2017-02-06 21:54] LABS: ALBUMIN 3.5 g/dL (3.5-5.0); ANION GAP 8 mEq/L (8-16); CARBON DIOXIDE 20 mEq/l (22-31); CHLORIDE 89 mEq/L (97-110); CREATININE 0.6 mg/dL (0.6-1.0); GLOMERULAR FILTRATION RATE > 60; GLUCOSE 86 mg/dL (70-100); POTASSIUM 3.6 mEq/L (3.5-5.2)
[2017-02-06 22:01] LABS: SODIUM 117 mEq/L (134-144); SODIUM 118 mEq/L (134-144)
[2017-02-07 00:50] LABS: ALBUMIN 3.4 g/dL (3.5-5.0); ANION GAP 9 mEq/L (8-16); CARBON DIOXIDE 20 mEq/l (22-31); CHLORIDE 90 mEq/L (97-110); CREATININE 0.6 mg/dL (0.6-1.0); GLOMERULAR FILTRATION RATE > 60; GLUCOSE 79 mg/dL (70-100); POTASSIUM 3.9 mEq/L (3.5-5.2)
[2017-02-07 00:51] LABS: SODIUM 119 mEq/L (134-144)
[2017-02-07 03:09] LABS: ANION GAP 9 mEq/L (8-16); CALCIUM 9.1 mg/dL (8.5-10.4); CARBON DIOXIDE 20 mEq/l (22-31); CHLORIDE 90 mEq/L (97-110); CREATININE 0.6 mg/dL (0.6-1.0); GLOMERULAR FILTRATION RATE > 60; GLUCOSE 77 mg/dL (70-100); POTASSIUM 3.9 mEq/L (3.5-5.2)
[2017-02-07 03:20] LABS: SODIUM 119 mEq/L (134-144)
[2017-02-07 04:42] LABS: ANION GAP 10 mEq/L (8-16); CARBON DIOXIDE 19 mEq/l (22-31); CHLORIDE 91 mEq/L (97-110); CREATININE 0.6 mg/dL (0.6-1.0); GLOMERULAR FILTRATION RATE > 60; GLUCOSE 81 mg/dL (70-100); POTASSIUM 3.8 mEq/L (3.5-5.2); SODIUM 120 mEq/L (134-144)
[2017-02-07 06:31] LABS: % IMMATURE GRANULYOCYTES 1.1 % (0.0-1.1); ABSOLUTE IMMATURE GRANULOCYTES 0.05 10^3/uL (0.00-0.10); ABSOLUTE NRBC COUNT 0.02 10^3/uL (0-0.01); ADD DIFF? NO; ADD MORPH? NO; ADD SCAN? NO; ATYPICAL LYMPHOCYTE FLAG 0 (0-99); FRAGMENT RBC FLAG 0 (0-99); HEMATOCRIT 27.5 % (38.0-47.0); HEMOGLOBIN 9.9 g/dL (12.6-16.3); LEFT SHIFT FLG 0 (0-99); LIPEMIA HEMOLYSIS FLAG 90 (0-99); MEAN CELL HEMOGLOBIN 32.6 pg (27.9-34.1); MEAN CELL VOLUME 90.5 fL (81.5-99.8); MEAN PLATELET VOLUME 10.1 fL (8.7-11.7); NRBC-AUTO% 0.4 % (0.0-0.2); PLATELET CLUMPS FLAG 0 (0-99); PLATELET COUNT 117 10^3/uL (150-400); RED BLOOD CELL COUNT 3.04 10^6/uL (4.18-5.33); RED CELL DISTRIBUTION WIDTH 12.8 % (11.5-15.2)
[2017-02-07 06:53] LABS: ANION GAP 9 mEq/L (8-16); CALCIUM 9.1 mg/dL (8.5-10.4); CARBON DIOXIDE 19 mEq/l (22-31); CHLORIDE 93 mEq/L (97-110); CREATININE 0.6 mg/dL (0.6-1.0); GLOMERULAR FILTRATION RATE > 60; GLUCOSE 86 mg/dL (70-100); MAGNESIUM 1.6 mg/dL (1.6-2.3); POTASSIUM 4.1 mEq/L (3.5-5.2); SODIUM 121 mEq/L (134-144)
[2017-02-07] MEDS: MULTIVITAMINS 1 EACH TAB PO SCH (07:53)
[2017-02-07] MEDS: THIAMINE HCL 100 MG TAB PO SCH (07:53)
[2017-02-07] MEDS ORDERED: MAGNESIUM SULF 1 GM/DEXTROSE 100 ML IV ONE (07:57)
--- NOTE | 2017-02-07 10:00 | SOAPPROG ---
SOAP Progress Note Assessment/Plan: Assessment/Plan: Hyponatremia: likely had been coming on for several days given her timeline of symptoms. Na 109 on presentation, urine osm and urine sodium were low. This is most concerning for too much alcohol and not enough solute intake, does not look like SIADH. She is appropriately slowly improving, did not make much improvement since yesterday likely from still not having much solute intake. - Will continue 1000ml fluid restriction. - Will change diet to regular. - Will continue to monitor sodium q4h. - Goal sodium by tomorrow am around 128. Alcohol dependence with withdrawal: pt having improved withdrawal symptoms. We discuss today the relationship between her alcohol intake and her hyponatremia and seizure, and she admitted that she is drinking way too much. I recommended seeking out strategies to help her stay away from alcohol when she returns to [place], including rehab and AA. She and her family are looking into her options. Subjective: No acute events overnight. Pt feels like her DTs are much improved, feeling better today. We discussed again the relationship between her seizure, sodium level and alcohol intake, as she did not remember that from earlier this hospitalization. Objective: Vital Signs Temp Pulse Resp BP Pulse Ox 36.9 C 81 12 121/87 H 100 02/07/17 06:00 02/07/17 08:00 02/07/17 08:00 02/07/17 08:00 02/07/17 08:00 Laboratory Results 02/07/17 06:00 02/07/17 06:00 02/06/17 02/07/17 02/08/17 05:59 05:59 05:59 Intake Total 788.4 1125 Output Total 1650 1075 150 Balance -861.6 50 -150 PT 11.9 SEC (12.0-15.0) L 02/04/17 07:11 INR 0.89 (0.83-1.16) 02/04/17 07:11 General: alert and oriented, no acute distress Eyes; EOMI, PERRL OP: clear CV: RRR Resp: nonlabored respirations, CTAB Abd: Soft, NT/ND Ext: no edema BLE Neuro: CN II-XII grossly intact, no asterixis Psych: cooperative, appropriate mood and affect ICD10 Worksheet Patient Problems: Problems Problem Status Onset Hyponatremia Acute Seizure Acute
[2017-02-07] MEDS: LORazepam 1 MG TAB PO PRN (14:30)
--- NOTE | 2017-02-07 15:44 | HOSPPROG ---
Hospitalist Progress Note Assessment/Plan: 37 yo F with hx of etoh abuse presenting with critical hyponatremia and etoh w/d # hyponatremia: critical on arrival of 109, now improved to 121. Secondary to poor solute intake, hypotonic fluid intake. Given patient being very high risk of ODS have been working on correcting her slowly. Continue fluid restriction of 1L. If Na improves to 128 by tomorrow suspect she can dc home at that time # alcohol abuse and withdrawal: had seizure in association with this, seizure threshold lowered given concurrent hyponatremia. Patient has had several discussions regarding the association of her alcohol use and her hyponatremia and that all in all her alcohol use history is very concerning. Patient has been reporting not recollecting these conversations. Family is working on getting her into a treatment facility in [place] after discharge. # hypokalemia/hypophosphatemia: repleting per protocol, patient with malnutrition in setting of heavy/chronic etoh use # pancytopenia: 2/2 bone marrow suppression from chronic etoh abuse, wbc improved as did platelets, remains anemic # dispo: IP status, remains high risk with continued low sodium and ongoing etoh w/d Patient new to my care. Care plan reviewed with Dr. Mackey and multidisciplinary care team on rounds, further hx obtained from patients family present at bedside. Subjective: no acute overnight events, patient eating today, feeling overall better Objective: Vital Signs Temp Pulse Resp BP Pulse Ox 36.9 C 81 12 121/87 H 100 02/07/17 06:00 02/07/17 08:00 02/07/17 08:00 02/07/17 08:00 02/07/17 08:00 Laboratory Results 02/07/17 06:00 02/07/17 14:20 02/06/17 02/07/17 02/08/17 05:59 05:59 05:59 Intake Total 788.4 1125 Output Total 1650 1075 500 Balance -861.6 50 -500 PT 11.9 SEC (12.0-15.0) L 02/04/17 07:11 INR 0.89 (0.83-1.16) 02/04/17 07:11 awake alert nad anicteric op clear rrr no mrg cta b to ant exam soft nt nd no cce warm dry well perfused oriented appropriate tremulous ICD10 Worksheet Patient Problems: Problems Problem Status Onset Seizure Acute Hyponatremia Acute
--- NOTE | 2017-02-07 17:17 | PDINTPN ---
Electrical System Specialist Progress Note Assessment/Plan: Assessment: Hyponatremia: Resolving, latest sodium 127. Anticipate 130s tomorrow and no contraindications to discharge. Hypokalemia: Corrected EtOH withdrawal: Resolving, withdrawal seems to be about over... Remains on CIWA Sz: Due to hyponatremia. No further seizures. Plan: Continue p.r.n. benzodiazepines. Continue fluid restriction. Follow sodiums. Probable discharge to home tomorrow. Lives in [place]. Her family has an inpatient alcohol rehabilitation center arranged. Subjective: Feels better. Up walking in the halls. No complaints. He eating. Not tremulous. No headache. Objective: Vital Signs Temp Pulse Resp BP Pulse Ox 36.9 C 81 12 121/87 H 100 02/07/17 06:00 02/07/17 08:00 02/07/17 08:00 02/07/17 08:00 02/07/17 08:00 Laboratory Results 02/07/17 06:00 02/07/17 14:20 02/06/17 02/07/17 02/08/17 05:59 05:59 05:59 Intake Total 788.4 1125 Output Total 1650 1075 500 Balance -861.6 50 -500 PT 11.9 SEC (12.0-15.0) L 02/04/17 07:11 INR 0.89 (0.83-1.16) 02/04/17 07:11 Physical Exam - Physical Exam General Appearance: alert, no apparent distress EENT: PERRL/EOMI, other (Mucous membranes moist), No scleral icterus (R), No scleral icterus (L) Neck: normal inspection (No JVD) Respiratory: lungs clear, other (on room ar) Cardiac/Chest: regular rate, rhythm Abdomen: normal bowel sounds, non-tender, soft Skin: normal color, warm/dry Extremities: No pedal edema Neuro/Psych: no motor/sensory deficits, No cognition abnormalities ICD10 Worksheet Patient Problems: Problems Problem Status Onset Seizure Acute Hyponatremia Acute
[2017-02-07 19:07] LABS: POTASSIUM 3.6 mEq/L (3.5-5.2); SODIUM 125 mEq/L (134-144)
[2017-02-07] MEDS: ALBUTEROL 200 PUFFS/18 GM MDI IH PRN (19:47)
[2017-02-08 00:41] LABS: POTASSIUM 3.6 mEq/L (3.5-5.2)
[2017-02-08 06:25] LABS: ANION GAP 13 mEq/L (8-16); CALCIUM 9.1 mg/dL (8.5-10.4); CARBON DIOXIDE 19 mEq/l (22-31); CHLORIDE 98 mEq/L (97-110); CREATININE 0.6 mg/dL (0.6-1.0); GLOMERULAR FILTRATION RATE > 60; GLUCOSE 93 mg/dL (70-100); MAGNESIUM 1.5 mg/dL (1.6-2.3); POTASSIUM 3.5 mEq/L (3.5-5.2); SODIUM 130 mEq/L (134-144)
[2017-02-08] MEDS: MULTIVITAMINS 1 EACH TAB PO SCH (11:15)
[2017-02-08] MEDS: THIAMINE HCL 100 MG TAB PO SCH (11:15)
[2017-02-08] MEDS ORDERED: MAGNESIUM SULF 2 GM/WATER 50 ML IV ONE (11:28)
[2017-02-08] MEDS ORDERED: POTASSIUM CL 20 MEQ TAB PO ONE (11:28)
--- NOTE | 2017-02-08 11:32 | SOAPPROG ---
SOAP Progress Note Assessment/Plan: Assessment/Plan: Hyponatremia: likely had been coming on for several days given her timeline of symptoms. Na 109 on presentation, urine osm and urine sodium were low. This is most concerning for too much alcohol and not enough solute intake, does not look like SIADH. She is improving slowly but had a larger increase in past 24 hours from 121 yesterday to 130 this am, got some additional D5 IV overnight as well. - Will continue to monitor sodium q6h, goal is 134 by tomorrow am. - Liberalized fluid restriction to 2000ml and encouraged intake for now. - She is on regular diet. Alcohol dependence with withdrawal: pt having improved withdrawal symptoms. We discuss today the relationship between her alcohol intake and her hyponatremia and seizure, and she admitted that she is drinking way too much. I recommended seeking out strategies to help her stay away from alcohol when she returns to [place], including rehab and AA. She is planning on going straight to an inpatient rehab facility when she gets back to [place]. Hypokalemia: K 3.5, will give KCL 40meq po x1 today and continue to monitor. Hypomagnesemia: will give magnesium sulfate IV today and continue to monitor. Subjective: No acute events overnight. Pt overall feeling better, no longer dizzy, has no other complaints today. Objective: Vital Signs Temp Pulse Resp BP Pulse Ox 37.3 C 80 12 123/82 H 96 02/08/17 08:00 02/08/17 08:00 02/08/17 08:00 02/08/17 08:00 02/08/17 08:00 Laboratory Results 02/07/17 06:00 02/08/17 05:50 02/07/17 02/08/17 02/09/17 05:59 05:59 05:59 Intake Total 1125 400 Output Total 1075 1100 Balance 50 -700 PT 11.9 SEC (12.0-15.0) L 02/04/17 07:11 INR 0.89 (0.83-1.16) 02/04/17 07:11 General: alert and oriented, no acute distress Eyes; EOMI, PERRL OP: Clear CV: RRR REsp: nonlabored respirations on RA Abd; SOft, NT Ext; no edema BLE Neuro: CN II-XII Grossly intact, no asterixis Psych: cooperative, appropriate mood and affect ICD10 Worksheet Patient Problems: Problems Problem Status Onset Hyponatremia Acute Seizure Acute
[2017-02-08 11:44] LABS: POTASSIUM 3.6 mEq/L (3.5-5.2); SODIUM 129 mEq/L (134-144)
[2017-02-08] MEDS ORDERED: MAGNESIUM SULF 1 GM/DEXTROSE 100 ML IV ONE (12:12)
--- NOTE | 2017-02-08 12:14 | HOSPPROG ---
Hospitalist Progress Note Assessment/Plan: 37 yo F with hx of etoh abuse presenting with critical hyponatremia and etoh w/d # hyponatremia: critical on arrival of 109, secondary to poor solute intake, hypotonic fluid intake. Given patient being very high risk of ODS have been working on correcting her slowly but she did increase to 130 from 121 overnight despite receiving D5. Discussed with renal who would like to keep her at least overnight to make sure she does not correct too quickly. # alcohol abuse and withdrawal: had seizure in association with this, seizure threshold lowered given concurrent hyponatremia. Discussed at length with patient and her that this incident is clearly directly related to her drinking and was a life threatening event, and that to continue drinking would absolutely be putting her life at risk. Patient acknowledges her drinking has been out of control, but her also states that she has told him repeatedly in the past that she is "never going to stop drinking". She agrees to go to treatment in [place] for now and her family has been setting that up # hypokalemia/hypophosphatemia: repleting per protocol, patient with malnutrition in setting of heavy/chronic etoh use # pancytopenia: 2/2 bone marrow suppression from chronic etoh abuse, wbc improved as did platelets, remains anemic # dispo: IP status, likely dc tomorrow per renal Subjective: no significant overnight events, patient is feeling better today, eating, she hasn't been able to walk yet today but has been to the bathroom and felt steady on her feet Objective: Vital Signs Temp Pulse Resp BP Pulse Ox 37.3 C 80 12 123/82 H 96 02/08/17 08:00 02/08/17 08:00 02/08/17 08:00 02/08/17 08:00 02/08/17 08:00 Laboratory Results 02/07/17 06:00 02/08/17 11:05 02/07/17 02/08/17 02/09/17 05:59 05:59 05:59 Intake Total 1125 400 Output Total 1075 1100 Balance 50 -700 PT 11.9 SEC (12.0-15.0) L 02/04/17 07:11 INR 0.89 (0.83-1.16) 02/04/17 07:11 awake alert nad anicteric op clear rrr no mrg cta b to ant exam soft nt nd no cce warm dry well perfused oriented appropriate tremulous ICD10 Worksheet Patient Problems: Problems Problem Status Onset Hyponatremia Acute Seizure Acute
[2017-02-08 19:12] LABS: POTASSIUM 3.5 mEq/L (3.5-5.2); SODIUM 125 mEq/L (134-144)
[2017-02-08] MEDS: ACETAMINOPHEN 325 MG TAB PO PRN (22:31)
[2017-02-09 00:46] LABS: POTASSIUM 3.2 mEq/L (3.5-5.2); SODIUM 127 mEq/L (134-144)
[2017-02-09] MEDS ORDERED: POTASSIUM CL 20 MEQ/15 ML UDCUP PO ONE (01:28)
[2017-02-09 06:40] LABS: ANION GAP 7 mEq/L (8-16); CALCIUM 9.5 mg/dL (8.5-10.4); CARBON DIOXIDE 21 mEq/l (22-31); CHLORIDE 101 mEq/L (97-110); CREATININE 0.7 mg/dL (0.6-1.0); GLOMERULAR FILTRATION RATE > 60; GLUCOSE 84 mg/dL (70-100); MAGNESIUM 1.5 mg/dL (1.6-2.3); POTASSIUM 4.2 mEq/L (3.5-5.2); SODIUM 129 mEq/L (134-144)
[2017-02-09 07:43] VITALS: BP 118/86; PULSE 80; RESP 18; TEMP 99.5; O2SAT 96
[2017-02-09] MEDS ORDERED: MAGNESIUM SULF 1 GM/DEXTROSE 100 ML IV ONE (08:31)
--- NOTE | 2017-02-09 08:42 | SOAPPROG ---
SOAP Progress Note Assessment/Plan: Assessment: 1. Hyponatremia. Probably beer potomania. Corrected at an appropriate rate. Na stalled at 129 for 3 days. May have superimposed SIADH as well. Rec liberal Na intake at home, FR to 6 glasses per day, high protein intake, EtOH avoidance, labs Tuesday and Tuesday, f/u with her PCP next week. 2. EtOH abuse. To be admitted to rehab facility directly after d/c. 3. Dispo. Ok to d/c today from nephrology standpoint. Plan: 02/09/17 08:40 Subjective: No complaints. Wants to leave. Objective: Vital Signs Temp Pulse Resp BP Pulse Ox 37.5 C 80 18 118/86 H 96 02/09/17 07:41 02/09/17 07:41 02/09/17 07:41 02/09/17 07:41 02/09/17 07:41 Laboratory Results 02/07/17 06:00 02/09/17 05:58 02/08/17 02/09/17 02/10/17 05:59 05:59 05:59 Intake Total 400 1200 Output Total 1100 Balance -700 1200 PT 11.9 SEC (12.0-15.0) L 02/04/17 07:11 INR 0.89 (0.83-1.16) 02/04/17 07:11 RRR, no m/g/r CTAB Abdom soft, nt No edema ICD10 Worksheet Patient Problems: Problems Problem Status Onset Seizure Acute Hyponatremia Acute
[2017-02-09] MEDS: MULTIVITAMINS 1 EACH TAB PO SCH (08:56)
[2017-02-09] MEDS: THIAMINE HCL 100 MG TAB PO SCH (08:56)
--- NOTE | 2017-02-09 09:15 | PDDCSUM ---
Discharge Summary Discharge Summary: Dates of service 02/04-02/09/17 Discharge dx: # hyponatremia # alcohol abuse and withdrawal # electrolyte abnormalities # pancytopenia consultations: renal, critical care medicine Procedures: PICC placement Hospital course by problem: # hyponatremia: critical on arrival of 109, secondary to poor solute intake, hypotonic fluid intake. Corrected slowly and appropriately. W # alcohol abuse and withdrawal: had seizure in association with this, seizure threshold lowered given concurrent hyponatremia. Patient agrees to f/u with IP rehab which her family has set up # hypokalemia/hypophosphatemia: repleting per protocol, patient with malnutrition in setting of heavy/chronic etoh use # pancytopenia: 2/2 bone marrow suppression from chronic etoh abuse DC to home, going to [place] with a plan to enter IP rehab > 35 min spent in dc more than half in coordination of care Will push sodium, and limit fluids after dc
--- NOTE | 2017-02-09 10:14 | ASMTCMCOM ---
CM Note CM Note Notes: Spoke w/PT, pt will dc home w/support of and will seek treatment back in [place]. CM available for any changes. Date Signed: 02/09/2017 10:14 AM Electronically Signed By:Taylor Hinkle RN
--- NOTE | 2017-02-09 18:04 | ASDISCHSUM ---
Discharge Information Plan Status:Home with No Needs Medically Cleared to Leave: Discharge Date:02/09/2017 11:50 AM CM D/C Disposition:Home, Routine, Self-Care ADT D/C Disposition:Home, Routine, Self-Care Projected Discharge Date:02/05/2017 12:00 AM Transportation at D/C:Family Discharge Delay Reason: Follow-Up Date:02/05/2017 12:00 AM Discharge Slot: Final Diagnosis: Placement Information Patient Contact Information Contact Name:ZOHAIB Relationship: Address:[address] Work Phone: [facility]:[place] Alternate Phone: [facility]/Zip Code:[place] [address] Email: Financial Information Financial Class:HMO and PPO Plans Primary Plan Desc: OUT OF STATE PPO Primary Plan Number:[id number] Secondary Plan Desc: Secondary Plan Number: Assessment Information [facility] CM Progress Note CM Note CM Note Notes: Pt. is a 37-year-old woman admitted after a seizure for hyponatremia. Pt. is reportedly visiting from [place], [place] with her , Lavelle. Pt. reports she has been drinking excessively. Being monitored during her withdrawal. Will need assessment for ETOH resources when appropriate prior to d/c. CM to follow for d/c POC. Date Signed: 02/05/2017 04:23 PM Electronically Signed By:Kelly Pena LCSW [facility] CM Progress Note CM Note CM Note Notes: Family interested in ETOH resources. They live in [place]. Spoke to family and patient and encouraged them to seek tx through their insurance and in [place] where she could seek continuous support. Patient's employer allows to ETOH at work. Asked if she was willing to quit? She was willing to cut back. The road to recovery will be a long process. Asked Dr Martino to inform her of the medical consequences. Date Signed: 02/06/2017 04:58 PM Electronically Signed By:Ciarra Figueroa LCSW [facility] Progress Note CM Note CM Note Notes: Spoke w/PT, pt will dc home w/support of and will seek treatment back in [place]. CM available for any changes. Date Signed: 02/09/2017 10:14 AM Electronically Signed By:Taylor Hinkle RN Intervention Information
[2017-02-10] MEDS ORDERED: LORazepam 2 MG/ML INJ IVP SCH (16:16)
== END 2017-02-09 11:50 | disposition home or self-care (01) | DRG 641 ==
LOC: F2N 08:50 → F3E 02-07 23:19
PROVIDERS: ADMIT Student in an Organized Health Care Education/Training Program; ATTEND Internal Medicine
PROC: 02HV33Z Insertion of Infusion Device into Superior Vena Cava, Percutaneous Approach (ICD-10-PCS; principal; 2017-02-04)
DX: E87.1 Hypo-osmolality and hyponatremia (principal); F10.239 Alcohol dependence with withdrawal, unspecified; R56.9 Unspecified convulsions; E87.6 Hypokalemia; E83.39 Other disorders of phosphorus metabolism; D61.818 Other pancytopenia; I10 Essential (primary) hypertension
CPT/HCPCS: 80307; 82947-QW; 96365; 97116-GP; 97162-GP; C1751; G0480; J2060; J2405; J2597; J2765; J3475